=== PATIENT | male | born 1940 | race Caucasian/White ===

== ENCOUNTER 2022-04-15 12:05 | Emergency (ER) | payer MEDICARE, SELFPAY ==
[2022-04-15] VITALS (47 sets, daily range): BP systolic 89–121; BP diastolic 41–74; PULSE 79–112; RESP 13–24; O2SAT 93–99
--- NOTE | 2022-04-15 12:06 | ECG_ITS ---
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 Measurements Intervals [place] Rate: 106 P: 73 IA: 187 QRS: 68 QRSD: 147 T: 57 QT: 314 QTc: 418 Interpretive Statements SINUS TACHYCARDIA RIGHT BUNDLE BRANCH BLOCK [120+ ms QRS DURATION, UPRIGHT V1, 40+ ms S IN I/aVL/V4/V5/V6] PROBABLE ANTERIOR MYOCARDIAL INFARCTION , OF INDETERMINATE AGE [35 ms Q WAVE IN V3/V4] No previous ECG available for comparison Electronically Signed On 04-15-2022 21:57:57 CDT by Brandan Pisano M.D. [email or web address]/[id number]
--- NOTE | 2022-04-15 12:06 | XRR_ITS ---
PROCEDURE INFORMATION: Exam: XR Chest Exam date and time: 04/15/2022 12:19 PM Age: 81 years old Clinical indication: Pain; Chest pressure; Additional info: Chest pain TECHNIQUE: Imaging protocol: Radiologic exam of the chest. Views: 1 view. COMPARISON: CR XR chest 2V* [id number] 06/14/2015 10:15 AM FINDINGS: Lungs: Unremarkable. No consolidation. Pleural spaces: Unremarkable. No pleural effusion. No pneumothorax. Heart/Mediastinum: Unremarkable. No cardiomegaly. Bones/joints: Unremarkable. XR/XR chest 1V portable [id number] IMPRESSION: No acute findings.
--- NOTE | 2022-04-15 12:29 | ED_ITS ---
HPI - Chest Pain General: Chief Complaint: Chest Pain Stated Complaint: chest pain Time Seen by Provider: 04/15/22 12:06 History of Present Illness: 81-year-old male presenting today with diarrhea, diffuse body aches, nasal congestion and vertigo. Patient notes that his left ear feels like it has a ton of wax in it. Has been trying to remove it. But is unsuccessful. He notes this will cause him to have balance issues. He also notes that he had crampy abdominal pain with nonbloody nonblack diarrhea. Diarrheal episodes upwards of a bowel movement every 5 minutes. He notes d iffuse body aches. And a feeling of unwell. He notes left-sided chest pain. Chest pain has been present intermittently for a long time. Currently described as minimal on his left side. He notes his chest pain is mostly positional and movement. Not associated with exertion. 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 Takes no other medications. Review of Systems General: Reports: 10 or more systems reviewed and unremarkable except in HPI and below PFSH ED PFSH: Medical History History of nonmelanoma skin cancer Surgical History History of cataract surgery Social History Smoking and tobacco status: former smoker Physical Exam Const: COMMON NORMALS: no acute distress, patient oriented x3 and alert GENERAL APPEARANCE: cooperative ORIENTATION/CONSCIOUSNESS: Yes awake, Yes oriented to person, Yes oriented to place and Yes oriented to time HENMT: COMMON NORMALS: normocephalic, atraumatic, external ears normal, Normal external nose present and moist oral mucous membranes HEAD & SCALP: normal to inspection, normocephalic and atraumatic NOSE: Normal external nose present GENERAL EAR: hearing grossly impaired EXTERNAL EAR: Yes external ears normal Eye: COMMON NORMALS: Equal, round and reactive pupils present, EOMs intact bilaterally, conjunctivae normal and no scleral icterus GENERAL EYE: appearance normal, both eyes and all related structures EYELID: eyelids normal CONJUNCTIVA: Yes conjunctivae normal SCLERA: sclerae normal PUPIL: Yes Equal, round and reactive pupils present Neck/C-Spine: COMMON NORMALS: full ROM, supple and no JVD GENERAL: Yes normal visual inspection Lymph: LYMPHATIC: no lymphadenopathy noted and no lymphedema noted Chest: COMMONS NORMALS: normal inspection of the chest Resp: COMMON NORMALS: normal respiratory effort, No retractions and No use of accessory muscles Cardio: COMMON NORMALS: no JVD, regular rate and regular rhythm RATE: regular rate RHYTHM: regular rhythm GI: COMMON NORMALS: Normal to inspection, nondistended, normoactive bowel sounds present : COMMON NORMALS: Yes no CVA tenderness BLADDER/KIDNEY EXAM: Yes no CVA tenderness Back/Pelvis: COMMON NORMALS: no CVA tenderness and thoracic and lumbar spine normal to inspection Extremity: COMMON NORMALS: normal to inspection, full ROM and capillary refill normal GENERAL: Yes normal exam except as noted Neuro: COMMON NORMALS: patient oriented x3, CN's II-XII intact bilaterally, moves all extremities, no focal motor deficits, no sensory deficits noted and gait normal SENSORIUM/ORIENTATION: Yes alert, Yes oriented to person, Yes oriented to place and Yes oriented to time Psych: COMMON NORMALS: mental status grossly normal, Normal thought process pr esent, cooperative and normal affect THOUGHT PROCESS: Normal thought process present Skin: COMMON NORMALS: no rashes or lesions noted and no wounds GENERAL SKIN EXAM: no rashes or lesions noted Course Vital Signs: Vital signs: Vital Signs Pulse Rate 100 04/15/22 13:49 Respiratory Rate 16 04/15/22 12:23 Blood Pressure 107/61 04/15/22 13:49 Pulse Oximetry 93 04/15/22 13:49 Oxygen Delivery Me thod 04/15/22 12:23 MDM - Chest Pain Medical Decision Making 81-year-old male presenting today with diarrhea. CBC with evidence of leukocytosis. Abdominal exam is benign. Without any significant tenderness. No recent antibiotics suggest C. difficile. CMP with evidence of renal sufficiency. Along with tachycardia. This is likely suggestive of dehydration. Patient was bolused normal saline. With improvement. Initial troponin slightly elevated. Delta troponin without significant elevation. EKG is within normal limits. We will start patient on loperamide for home. Patient was given strict return precautions and recommended routine outpatient follow-up. Lab Data : 04/15/22 12:20 04/15/22 12:20 Radiology Impressions Chest X-Ray 04/15/22 12:06 IMPRESSION: No acute findings. Laboratory Results WBC 16.3 10^3/uL (4.0-10.0) H 04/15/22 12:20 RBC 4.64 10^6/uL (4.1-5.3) 04/15/22 12:20 Hgb 14.2 g/dL (11.7-16.6) 04/15/22 12:20 Hct 43.4 % (42.0-52.0) 04/15/22 12:20 MCV 93.5 fl (80-94) 04/15/22 12:20 MCH 30.6 pg (28.0-34.0) 04/15/22 12:20 MCHC 32.7 g/dL (30.0-36.0) 04/15/22 12:20 RDW 13.8 % (12.1-15.1) 04/15/22 12:20 Plt Count 234 10^3/cmm (130-400) 04/15/22 12:20 MPV 10.6 fL (7.4-10.4) H 04/15/22 12:20 Neut % (Auto) 97.0 % 04/15/22 12:20 Lymph % (Auto) 1.2 % 04/15/22 12:20 Wilson % (Auto) 0.9 % 04/15/22 12:20 Eos % (Auto) 0.0 % 04/15/22 12:20 Baso % (Auto) 0.3 % 04/15/22 12:20 Neut # (Auto) 15.85 10^3/uL (1.8-7.7) H 04/15/22 12:20 Lymph # (Auto) 0.2 10^3/uL (0.8-4.8) L 04/15/22 12:20 Wilson # (Auto) 0.1 10^3/uL (0.2-0.9) L 04/15/22 12:20 Eos # (Auto) 0.0 10^3/uL (0.0-0.8) 04/15/22 12:20 Baso # (Auto) 0.1 10^3/uL (0.0-0.1) 04/15/22 12:20 Nucleated RBC % (auto) 0 % 04/15/22 12:20 Nucleated RBCs # 0.0 /100WBC 04/15/22 12:20 Sodium 140 mmol/L (136-145) 04/15/22 12:20 Potassium 3.7 mmol/L (3.5-5.1) 04/15/22 12:20 Chloride 104 mmol/L (98-107) 04/15/22 12:20 Carbon Dioxide 17 mmol/L (22-29) L 04/15/22 12:20 Anion Gap 22.7 (5-19) H 04/15/22 12:20 BUN 25 mg/dL (8-23) H 04/15/22 12:20 Creatinine 1.5 mg/dL (0.7-1.2) H 04/15/22 12:20 GFR Calculation Not Reportable 04/15/22 12:20 Glucose 103 mg/dL (65-115) 04/15/22 12:20 Calculated Osmolality 295 mOsm/kg (285-295) 04/15/22 12:20 Calcium 9.5 mg/dL (8.5-10.5) 04/15/22 12:20 Total Bilirubin 0.8 mg/dL (0.15-1.2) 04/15/22 12:20 AST 41 U/L (0-40) H 04/15/22 12:20 ALT 26 U/L (0-41) 04/15/22 12:20 Alkaline Phosphatase 95 U/L (40-130) 04/15/22 12:20 Troponin T Baseline 21 ng/L (0-15) H 04/15/22 12:20 Troponin T 120 Minute 16.54 ng/L (0-15) H 04/15/22 15:02 Delta Troponin T -4.46 ABS# (0-10) L 04/15/22 15:02 Total Protein 7.2 g/dL (6.6-8.7) 04/15/22 12:20 Albumin 4.4 g/dL (3.5-5.2) 04/15/22 12:20 Globulin 2.8 g/dL (1.3-4.6) 04/15/22 12:20 Coronavirus 229E (PCR) Not detected (NOT DETECT) 04/15/22 12:31 SARS-CoV-2 (PCR) Not detected (NOT DETECT) 04/15/22 12:31 Discharge Plan Discharge Patient Disposition: Home Clinical Impression: Acute renal insufficiency, Diarrhea, Acute dehydration Condition: Stable Prescriptions: New loperamide 2 mg capsule 2 mg PO Q6H PRN (Reason: loose stool) Qty: 30 0RF No Action mupirocin 2 % ointment 1 applic topical BID Qty: 15 0RF lidocaine-epinephrine (PF) 2 %-1:200,000 solution 4 ml SUBCUT ONCE Qty: 20 0RF warfarin 5 mg tablet PO Discharge Orders: Discharge ED (Routine); Ordered 04/15/22 Ordered By: Yung Oliver Referrals: Garret Alvarez DO [Primary Care Provider] - Patient Instructions: Dehydration - Adult, Acute Diarrhea (ED) Coding Level of Care Code ED Ems Coordinator for Chg Fwd Exam Comprehensive
[2022-04-15 12:31] LABS: Basophils # 0.1 10^3/uL (0.0-0.1); Basophils % 0.3 %; Hematocrit 43.4 % (42.0-52.0); Hemoglobin 14.2 g/dL (11.7-16.6); Lymphocytes # 0.2 10^3/uL (0.8-4.8); Lymphocytes % 1.2 %; Mean Corpuscular HGB Conc 32.7 g/dL (30.0-36.0); Mean Corpuscular Hemoglobin 30.6 pg (28.0-34.0); Mean Corpuscular Volume 93.5 fl (80-94); Mean Platelet Volume 10.6 fL (7.4-10.4); Monocytes # 0.1 10^3/uL (0.2-0.9); Monocytes % 0.9 %; Neutrophils # 15.85 10^3/uL (1.8-7.7); Nucleated Red Blood Cells % 0 %; Platelet Count 234 10^3/cmm (130-400); Red Blood Count 4.64 10^6/uL (4.1-5.3); Red Cell Distribution Width 13.8 % (12.1-15.1); White Blood Count 16.3 10^3/uL (4.0-10.0)
[2022-04-15 12:52] LABS: Alanine Aminotransferase 26 U/L (0-41); Albumin Level 4.4 g/dL (3.5-5.2); Alkaline Phosphatase 95 U/L (40-130); Anion Gap 22.7 (5-19); Aspartate Amino Transferase 41 U/L (0-40); Blood Urea Nitrogen 25 mg/dL (8-23); Calcium 9.5 mg/dL (8.5-10.5); Carbon Dioxide 17 mmol/L (22-29); Chloride 104 mmol/L (98-107); Globulin 2.8 g/dL (1.3-4.6); Glucose 103 mg/dL (65-115); Osmolality Calculated 295 mOsm/kg (285-295); Potassium 3.7 mmol/L (3.5-5.1); Sodium 140 mmol/L (136-145); Total Bilirubin 0.8 mg/dL (0.15-1.2); Total Protein 7.2 g/dL (6.6-8.7)
[2022-04-15 12:54] LABS: Troponin(5th) Baseline 21 ng/L (0-15)
[2022-04-15] MEDS: sodium chloride 0.9% 1,000 ML 999 ML IV ×2 (13:57→17:04)
[2022-04-15 14:32] LABS: Adenovirus Not Detected (NOT DETECT); Chlamydia Pneumoniae Not Detected (NOT DETECT); Coronavirus 229E,HKU1,NL63,OC4 Not Detected (NOT DETECT); Human Metapneumovirus Not Detected (NOT DETECT); Human Rhinovirus/Enterovirus Not Detected (NOT DETECT); Influenza A Not Detected (NOT DETECT); Influenza A H1 Not Detected (NOT DETECT); Influenza A H1-2009 Not Detected (NOT DETECT); Influenza A H3 Not Detected (NOT DETECT); Influenza B Not Detected (NOT DETECT); Mycoplasma Pneumoniae Not Detected (NOT DETECT); Parainfluenza Virus Type 1 Not Detected (NOT DETECT); Parainfluenza Virus Type 2 Not Detected (NOT DETECT); Parainfluenza Virus Type 3 Not Detected (NOT DETECT); Parainfluenza Virus Type 4 Not Detected (NOT DETECT); Respiratory Syncytial Virus A Not Detected (NOT DETECT); Respiratory Syncytial Virus B Not Detected (NOT DETECT); SARS-COV-2 Not Detected (NOT DETECT)
--- NOTE | 2022-04-15 14:33 | ECG_ITS ---
[facility] Test Date: 2022-04-15 Pat Name: Kalyan Corado Department: Room: Gender: Male Rate Clerk: : 1940 Requested By: Yung Oliver Order Number: [id number] Elia MD: Brandan Pisano M.D. Measurements Intervals [place] Rate: 99 P: 74 [place]: 167 QRS: 73 QRSD: 144 T: 67 QT: 358 QTc: 460 Interpretive Statements SINUS RHYTHM RIGHT BUNDLE BRANCH BLOCK [120+ ms QRS DURATION, UPRIGHT V1, 40+ ms S IN I/aVL/V4/V5/V6] POSSIBLE ANTERIOR MYOCARDIAL INFARCTION , OF INDETERMINATE AGE [30 ms Q WAVE IN V3/V4, OR R < 0.2 mV IN V4] Compared to ECG 04/15/2022 12:30:48 Sinus tachycardia no longer present Myocardial infarct finding still present Electronically Signed On 04-15-2022 22:06:21 CDT by Brandan Pisano M.D. [id number]
[2022-04-15 15:29] LABS: Troponin 5 2HR 16.54 ng/L (0-15)
[2022-04-15 15:41] LABS: Troponin 5 2HR Delta -4.46 ABS# (0-10)
--- NOTE | 2022-04-15 17:00 | PC.NURSE ---
entered room to discharge pt, pt bp noted to decrease when he sat up. orthostatic VS obtained and Dr. Oliver notified. New orders being placed.
--- NOTE | 2022-04-15 18:06 | ECG_ITS ---
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 Measurements Intervals [place] Rate: 94 P: 81 MA: 137 QRS: 59 QRSD: 108 T: 68 QT: 366 QTc: 458 Interpretive Statements SINUS RHYTHM LOW QRS VOLTAGE IN PRECORDIAL LEADS [QRS DEFLECTION < 1.0 mV IN CHEST LEADS] POSSIBLE RIGHT VENTRICULAR CONDUCTION DELAY [RSR (QR) IN V1/V2] Compared to ECG 04/15/2022 14:33:31 Low QRS voltage now present Right bundle-branch block no longer present Myocardial infarct finding no longer present Electronically Signed On 04-15-2022 22:04:41 CDT by Brandan Pisano M.D. [email or web address]/store/[id number]
--- NOTE | 2022-04-15 18:48 | PC.NURSE ---
attempted again to call pt's , cira, for a ride. no answer. 2nd voicemail left. Cuca number: [phone]
--- NOTE | 2022-04-15 19:04 | PC.NURSE ---
call received from Ana who is on her way for the pt. pt updated. report given to MILVIA Babb to assume care
[2022-04-15 19:52] LABS: Troponin 5 6HR 16.51 ng/L (0-15)
[2022-04-15 20:02] LABS: Troponin 5 6HR Delta -4.49 ng/L (0-12)
== END 2022-04-15 19:23 | disposition home or self-care (01) ==
PROVIDERS: Emergency Provider Emergency Medicine; PCP Internal Medicine
DX: N28.9 Disorder of kidney and ureter, unspecified (principal); R19.7 Diarrhea, unspecified; E86.0 Dehydration; Z79.01 Long term (current) use of anticoagulants; Z20.822 Contact with and (suspected) exposure to COVID-19; Z87.891 Personal history of nicotine dependence
CPT/HCPCS: 36415; 71045; 80053; 84484; 85025; 87635; 93005; 96360; 96361; 99285; J7030

== ENCOUNTER 2022-04-23 10:11 | Outpatient (CLI) | payer MEDICARE, SELFPAY ==
[2022-04-23 11:43] LABS: INR 6.01 (0.8-1.2)
== END 2022-04-23 10:12 | disposition home or self-care (01) ==
PROVIDERS: PCP Internal Medicine; Visit Provider Internal Medicine
DX: I82.409 Acute embolism and thrombosis of unspecified deep veins of unspecified lower extremity (principal)
CPT/HCPCS: 85610

== ENCOUNTER → 2022-08-06 13:40 | Outpatient (BNVA) | payer MEDICARE, SELFPAY | PROVIDERS: PCP Internal Medicine; Visit Provider Dermatology | DX: C44.219 Basal cell carcinoma of skin of left ear and external auricular canal (principal) | CPT/HCPCS: 88305 ==

== ENCOUNTER 2024-10-23 10:13 | Outpatient (CLI) | payer MEDICARE, SELFPAY ==
[2024-10-23 10:37] LABS: INR 4.59 (0.8-1.2)
== END 2024-10-23 10:14 | disposition home or self-care (01) ==
PROVIDERS: PCP Internal Medicine; Visit Provider Internal Medicine
DX: Z86.718 Personal history of other venous thrombosis and embolism (principal)
CPT/HCPCS: 85610

== ENCOUNTER → 2025-02-09 12:30 | Outpatient (BNVA) | payer MEDICARE, SELFPAY | PROVIDERS: PCP Internal Medicine; Referring Provider Family Medicine; Visit Provider Psychiatry & Neurology Neurology | DX: R20.0 Anesthesia of skin (principal); R20.2 Paresthesia of skin | CPT/HCPCS: 95912 ==

== ENCOUNTER → 2025-05-12 09:37 | Outpatient (BNVA) | payer MEDICARE, SELFPAY | PROVIDERS: PCP Internal Medicine; Visit Provider Specialist | DX: Z01.818 Encounter for other preprocedural examination (principal); G56.03 Carpal tunnel syndrome, bilateral upper limbs; M65.312 Trigger thumb, left thumb | CPT/HCPCS: 36415; 73110; 80053; 81001; 85025; 87086; 99204 ==

== ENCOUNTER → 2025-06-03 12:19 | Day surgery (SDC) | payer MEDICARE, SELFPAY ==
[2025-06-03] VITALS (10 sets, daily range): BP systolic 103–133; BP diastolic 40–69; PULSE 54–83; RESP 16–18; TEMP 36.3–36.5; O2SAT 94–98; BMI 23.7
[2025-06-03] MEDS: acetaminophen 1,000 MG/100 ML PIGGYBACK 400 MG IV (13:32)
--- NOTE | 2025-06-03 14:34 | P.HPUD_ITS ---
Surgery/Procedure H&P Update DATE OF PROCEDURE: June 03, 2025 DATE H&P PERFORMED: 05/12/25 H&P UPDATE INFORMATION: I have reviewed H&P completed within last 30 days, I have examined patient prior to procedure, No changes to prior documentation, H&P is in [facility] EMR on date indicated and Risks and benefits of the procedure reviewed PLANNED PROCEDURE: Operation Date: 06/03/25 14:40 Proposed Procedures p LEFT Carpal Tunnel Release(Left) - Nikki Lawrence MD s LEFT Thumb Trigger Finger Release(Left) - Nikki Lawrence MD Related Problem List Diagnoses 1. Carpal tunnel syndrome, left: 2. Trigger thumb, left thumb:
--- NOTE | 2025-06-03 15:46 | ANES.PREANE2 ---
Pre-Anesthetic Assessment Height/Weight: Height 1.85 m Weight 81.647 kg Temp Pulse Resp BP Pulse Ox O2 Del Method 97.3 F L 83 18 113/65 95 Room Air 06/03/25 13:20 06/03/25 13:20 06/03/25 13:20 06/03/25 13:20 06/03/25 13:20 06/03/25 13:21 Operation Date: 06/03/25 14:40 Proposed Procedures p LEFT Carpal Tunnel Release(Left) - Nikki Lawrence MD s LEFT Thumb Trigger Finger Release(Left) - Nikki Lawrence MD Familial anesthetic complications: None Was Beta Alesia taken within 24 hours: N/A Was Clonidine taken within 24 hours: N/A Last intake: Intake Last Liquid Date 06/03/25 Last Liquid Time 08:00 Last Solid Date 06/02/25 Last Solid Time 16:00 Social No alcohol and No tobacco Exam alert, oriented x 3, clear to auscultation bilaterally and regular rate & rhythm Airway Mallampati: Class I Dentition: other (none) Anesthetic Plan ASA status: 2 Anesthesia: General Risk of > 500 ml blood loss (7ml/kg in children): No Medications/Allergies Home Medications ?Medication ?Instructions ?Recorded ?Confirmed ?Last Taken ?Type warfarin 5 mg tablet 5 tab PO DAILY 11/20/21 06/02/25 05/31/25 History loperamide 2 mg capsule 2 mg PO Q6H PRN loose stool #30 04/15/22 06/02/25 Unknown Rx caps tamsulosin 0.4 mg capsule mg PO 06/02/25 Unknown History Allergies Allergy/AdvReac Type Severity Reaction Status Date / Time No Known Allergies Allergy Verified 06/02/25 08:29 Current Medications Generic Name Dose Route Start Last Admin Trade Name Freq PRN Reason Stop Dose Admin Sodium Chloride 1,000 mls @ 30 mls/hr 06/03/25 13:15 06/03/25 13:41 Sodium Chloride 0.9% IV 06/04/25 13:14 30 mls/hr .Q24H MALCOLM Administration PFSH Anesthesia Medical History (Updated 06/03/25 @ 14:35 by Nikki Lawrence MD) History of nonmelanoma skin cancer Surgical History History of cataract surgery Social History Smoking and tobacco/nicotine status: unknown if used tobacco/nicotine
[2025-06-03] MEDS: ceFAZolin 2,000 mg SDV 2000 MG IVP (16:18)
[2025-06-03] MEDS: BUPivacaine 0.5% INJ 30 mL XX (17:05)
--- NOTE | 2025-06-03 17:22 | P.OP_ITS ---
Operative Report Date of procedure: June 03, 2025 Pre-op diagnosis: Left carpal tunnel syndrome Left trigger thumb Post-op diagnosis: Left carpal tunnel syndrome Left trigger thumb Post-op findings: Extreme compression across the carpal canal and a very thickened tight A1 zee at the base of the thumb Procedure done: Left carpal tunnel release Left trigger thumb release Implants: None Specimens removed/disposition: None Pathology: None Surgeon: Nikki Lawrence MD Funeral Attendant: None Anesthesia: General (Intubated, ASA 2) Estimated blood loss (mL): 3 Tourniquet time (min): 34 (At 250 mmHg) IV fluids (mL): 900 Urine output (mL): 0 (No Mckoy) Complications: None Findings: As above Condition: stable Disposition: PACU (Then return to same-day surgery for discharge to home) Brief History: This 85-year-old gentleman presented to the office complaining of bilateral carpal tunnel symptoms. He also had triggering of his left thumb. Nerve conduction studies demonstrated severe carpal tunnel syndrome involving both motor and sensory components. After discussion in the office, the patient wished to proceed with left carpal tunnel release. He also wanted to have his left trigger thumb addressed at that time. Risks and complications were discussed with him. Consents are signed and questions were answered. Procedure: The patient was brought to the operating theater. The patient had a general anesthesia intubated, ASA 2. The tourniquet was elevated to 250 mmHg for a total tourniquet time of 34 minutes. The patient was also given Ancef 2 g preoperatively. The arm was then prepped and draped with DuraPrep in usual fashion with the arm draped free. A surgical pause was performed. At the time, the surgical pause, we confirmed the site and side of surgery. We also confirmed the patient's identity, appropriate and timely administration of preoperative antibiotics and preoperative surgical markings including both the carpal tunnel incision and the trigger thumb release.. Attention was initially addressed to the carpal tunnel release, and an incision was made along the thenar crease. The incision crossed the wrist joint in a curvilinear fashion. Dissection continued through skin and soft tissues using a scalpel. The palmaris longus was identified along with the transverse carpal ligament. Each of these was released carefully to avoid injury to the median nerve. We were able to dissect gently into the carpal canal which was noted to be quite tight with significant compression across the median nerve. The nerve was visualized and was an hourglass shape and very discolored. The canal was subsequently palpated to assure there was no bony encroachment upon the canal. The canal was then palpated distally and proximally to assure that my small finger was passed easily without impingement. Finding this to be so, attention was directed to closure. The wound was irrigated with ropivacaine plain, and this was also injected locally. It was then closed with 3-0 nylon in an interrupted mattress fashion. This was followed by Dermabond and OpSite. Following the carpal tunnel release, an incision was made along the metacarpal phalangeal crease of the thumb. Dissection continued through the skin to the subcutaneous tissues using a scalpel. Blunt dissection was then utilized to spread soft tissues and allow access to the A1 zee. Each A1 zee was identified. It was then incised longitudinally and sharply using a knife and scissors. This was accomplished without difficulty and atraumatically. Once the A1 zee was released, the tendon was brought up out of the wound and evaluated. There were no gross masses on the tendon, and it was returned to its normal position. We then irrigated the wound and subsequently closed it with 3-0 nylon with an interrupted mattress type suture. Following closure of the wound, the wound was irrigated and subsequently injected with ropivacaine into the subcutaneous tissues as a local anesthetic. Sterile dressing was then placed consisting of Dermabond and OpSite. Both wounds were then wrapped in a soft dressing including fluffed fluffs, sterile soft roll, and an Edin wrap. Tourniquet was released after 34 minutes. The patient was returned to recovery in satisfactory condition. He will be discharged home to follow-up in the office as scheduled. There were no complications and no specimens. Related Problem List Diagnoses 1. Carpal tunnel syndrome, left: 2. Trigger thumb, left thumb:
[2025-06-03] MEDS: HYDROcodone-acetaminophen 5-325 mg Tablet 1 TAB PO (18:35)
--- NOTE | 2025-06-03 19:33 | ANE.PACU2 ---
Inpatient post-anesthesia follow up: Airway intact: Yes Vital signs: Temperature 97.6 F Pulse Rate 59 Respiratory Rate 17 Blood Pressure 126/69 Pulse Oximetry 95 Oxygen Delivery Me thod Room Air Oxygen Flow Rate 6 Fraction of Inspir ed Oxygen Hydration adequate: Yes Nausea and vomiting: No Pain level: 1 Mental status: Baseline
== END | disposition home or self-care (01) ==
PROVIDERS: PCP Family Medicine; Visit Provider Specialist
PROC: (CPT 64721; principal; 2025-06-03 14:30)
PROC: (CPT 64721; 2025-06-03 14:30)
DX: G56.02 Carpal tunnel syndrome, left upper limb (principal); M65.312 Trigger thumb, left thumb; Z79.01 Long term (current) use of anticoagulants; Z85.828 Personal history of other malignant neoplasm of skin
CPT/HCPCS: 64721; 26055; J0131; J0690; J3010; J3490; J7030; J9999

== ENCOUNTER → 2025-06-16 08:28 | Outpatient (BNVA) | payer MEDICARE, SELFPAY | PROVIDERS: PCP Family Medicine; Visit Provider Specialist | DX: Z98.890 Other specified postprocedural states (principal) | CPT/HCPCS: 99024 ==